=== PATIENT | male | born 1950 | race Caucasian/White ===

== ENCOUNTER 2018-11-30 11:02 | Emergency (ER) | payer MEDICARE ==
[~2018-11-30] VITALS: Ht 190.5 cm; Wt 145.1 kg
--- OUTSIDE RECORDS SUMMARY | 2018-11-30 11:05 | XMS REPORT ---
Author Author [facility] Address Unknown Phone Unavailable Care Team Providers Care Marine Animal Trainer Name Role Phone KATERINA AVERY Unavailable Unavailable JANUARY HOFFMAN Unavailable Unavailable Problems This patient has no known problems. Allergies, Adverse Reactions, Alerts This patient has no known allergies or adverse reactions. Medications This patient has no known medications. Results Test Description Test Time Test Comments Text Results Atomic Results Result Comments BASIC METABOLIC PANEL 2018-09-11 08:18:00 SODIUM (BEAKER) (test omhk=285) 139 meq/L 136-145 POTASSIUM (BEAKER) (test tgqt=326) 4.6 meq/L 3.5-5.1 Specimen slightly hemolyzed CHLORIDE (BEAKER) (test ofiq=635) 101 meq/L 98-107 CO2 (BEAKER) (test onkt=171) 27 meq/L 22-29 BLOOD UREA NITROGEN (BEAKER) (test kbog=814) 22 mg/dL 7-21 CREATININE (BEAKER) (test pgsb=276) 1.45 mg/dL 0.57-1.25 Specimen slightly hemolyzed GLUCOSE RANDOM (BEAKER) (test wkuw=974) 123 mg/dL 70-105 CALCIUM (BEAKER) (test nfle=477) 9.4 mg/dL 8.4-10.2 EGFR (BEAKER) (test nwfd=5147) 48 mL/min/1.73 sq m ESTIMATED GFR IS NOT ACCURATE CREATININE CLEARANCE IN PREDICTING GLOMERULAR FILTRATION RATE. ESTIMATED GFR IS NOT APPLICABLE FOR DIALYSIS PATIENTS. PROTHROMBIN TIME/[id number] 08:09:00* Test Item Value Reference Range Comments PROTIME (BEAKER) (test vuxb=970) 13.2 seconds 11.7-14.7 INR (BEAKER) (test yfgl=724) 1.0 <=5.9 RECOMMENDED COUMADIN/WARFARIN INR THERAPY RANGESSTANDARD DOSE: 2.0 - 3.0 Inclu carolin: PROPHYLAXIS for venous thrombosis, systemic embolization; TREATMENT for ann ous thrombosis and/or pulmonary embolus.HIGH RISK: Target INR is 2.5-3.5 for pat ients with mechanical heart valves.[id number] 07:58:00* Test Item Value Reference Range Comments HEMOGLOBIN (ROSALIO) (test kykj=198) 13.5 GM/DL 13.7-17.5 PLATELET [id number] 07:58:00* Test Item Value Reference Range Comments PLATELET COUNT (ROSALIO) (test ggst=891) 236 K/CU MM 150-450 [id number] 13:19:00Medical Cytology Report Case: [id number] Authorizing Provider: Kanika Freitas MD Collected: 06/26/2017 1240 Ordering Location: [facility] Diagnostic Imaging Received: 06/26/2017 1234 Pathologist: Sly Patel MD Specimen: Lymph Node, Inguinal, Left Cytology Addendum:This addendum is created to report [facility] FISH analysis for BCL2, BCL6, and MYC gene rearrangements:There is no change to the original diagnosis.Quantity of sample was not sufficient for testing. Please see attached scanned [facility] report for details.Aicha Patel MDAddendum electronically signed by Sly Patel MD on 07/16/2017 at 1:19 PMLEFT INGUINAL LYMPH NODE, FNA WITH CELL BLOCK AND CORE BIOPSY BY RADIOLOGIST (LIBRADO):-INVOLVED BY LARGE B CELL LYMPHOMA WITH A HIGH PROLIFERATION INDEX(80%)-SEE COMMENT Signing Pathologist Direct Phone Line: [phone] signed by Sly Patel MD on 07/04/2017 at 4:33 PMEvaluation of the biopsy, cell block and aspirate demonstrates involvement by a large B cell lymphoma with a high proliferation index as demonstrated by Ki-67 immunostaining. This neoplastic population demonstrates a non-germinal center phenotype by immunohistochemical staining evaluation. High grade lymphoma FISH panel pending and results will be reported as an addendum to the flow cytometry report. Please refer to related report(s) [id number], [id number], 26783 [id number] x 1; 59375 x9Hx non-Hodgkin's lymphomaLeft inguinal lymph node (6.0 cm)Collected: 06/26/2017 1240Received: 06/26/2017 [id number] passes; 2 smears; cell block; core biopsy [id number] 1-4: ATYPICAL LYMPHOID PROLIFERATION. NEED CORE. ADEQUATE FOR FLOW. (DG) 06/26/2017Sections of biopsy and clot demonstrate an atypical intermediate to large lymphocyte population with irregular nuclear contour, vesicular nuclei with fine chromatin, and one to several nucleoli. Occasional mitotic figures are seen. The following immunohistochemical stains are ordered on the biopsy:CD3: Highlights T lymphocytesCD5: Highlights T lymphocytes with similar staining pattern to OM0XB52: LctygurkEW81: Highlight abundant la rge B lymphocytes BCL-2: Positive in neoplastic cellsBCL-6: Positive in neoplast ic cellsKi-67: Increased staining(80%) of neoplastic cellsCMYC: PositiveMUM1: PositiveCYCLIND1: NegativeSatisfactoryThe following special studies were perfo rmed on this case and the interpretation is incorporated in the diagnostic repor t above:The immunohistochemistry test was developed and its performance characte ristics determined by [facility], Pathology Laboratory. It has not been cleared or approved by the U.S. Food and Drug Administration. The FDA has determined that such clearance or approval is not necessary. The test is use d for clinical purposes. It should not be regarded as investigational or for res earch. This laboratory is certified under the Clinical Laboratory Improvement Am endments of 1988 (CLIA-88) as qualified to perform high complexity clinical labo ratory testing.The following immunohistochemical stains are ordered:CD3, CD5, CD 10, CD20, BCL-2, BCL-6, Ki-67, MUM1, MYC, MpnsbuN3Pa. [facility], Department of Pathology, [address] [place] [address], Eq. [facility], Department of Pathology, [address] [place] [address], [facility], Department of Pathology, [address] [place] [address], Tel Xw. [facility] Department of Pathology, [address] [place] [address], FSTX CYTOMETRY REQUISITION 2017-07-06 14:15:00* Test Item Value Reference Range Comments FLOW CYTOMETRY RESULT POINTER (ROSALIO) (test gdrf=5638) See Separate Report FLOW CYTOMETRY AP CASE # (ROSALIO) (test cjiy=6390) [id number] FLOW [id number] 16:24:00Flow Cytometry Report Case: [id number] Authorizing Provider: Keaton Hoffman MD Collected: 06/26/2017 1414 Ordering Location: [facility] Diagnostic Imaging Received: 06/27/2017 0822 Pathologist: Sly Patel MD Specimen: Other LYMPH NODE, LEFT INGUINAL, FLOW CYTOMETRY:-ATYPICAL, KAPPA LIGHT CHAIN RESTRICTED B CELL POPULATION IDENTIFIED(5% OF TOTAL CELLULARITY)-NO ABERRANT T LYMPHOCYTE POPULATION-SEE COMMENT Flow cytometric analysis performed on the FNA of a left inguinal lymph node demonstrates the presence of a monoclonal B lymphocyte population. This population represents 5% of total cellularity. No aberrant T lymphocyte population or blasts were identified. Recommend correlation with cytology find ings([id number]).[id number] year old man with left inguinal lymphadenopathy and histo ry of Non-Hodgkins lymphoma who present for further evaluation by lymph node bio psy.Left Inguinal Lymph NodeCD2, CD3, CD4, CD5, CD7, CD8, CD10, CD11c, CD19, CD2 0, CD23, CD34, CD38, CD45, CD56, Hustler, LambdaSpecimen Viability: 96.87%Abnormal B lymphocyte population identified (5% of total cellularity)POSITIVE: CD45, CD 19, CD20, CD11c (subpopulation), KappaNEGATIVE: CD2, CD3, CD4,CD7, CD8, CD10,CD 23, CD34, CD38, CD56, LambdaIn addition, the following populations are identifi ed:Blasts: No CD45+ CD34+ blasts identified.Lymphocytes: Bright CD45+ lymphocyte s comprise 46.76% of total cells. T cells show a CD4:CD8 ratio of 6.6 and normal hernandes T cell antigen expression. B cells as noted above. CD5 demonstrates some indiscriminate staining on B cell subpopulation.Myeloid/monocytic populations: A s identified by CD45 and light scatter characteristics, granulocytes comprise 45 .99% of cells analyzed, and monocytes comprise 4.69% of total cells.The remainin g events analyzed represent nonviable cells, non-hematolymphoid cells, and debri sThese tests were developed and their performance characteristics determined by [facility] They have not been cleared or approved by the U.S. Food and Drug Adm inistration. The FDA has determined that such clearance or approval is not neces evelin. It should not be regarded as investigational or for research. This laborat ory is certified under the Clinical Laboratory Improvement Amendments of 1988 (" CLIA") as qualified to perform high-complexity clinical testing.U/S, CORE BIOPSY 2017-06-26 18:15:00Reason for Exam:->vt lymphomaFINAL REPORT Exam: Ultrasound-guided left inguinal lymph node biopsy Clinical History: Non-Hodgkin's lymphoma Consent: Benefits and risks were explained to the patient who gave consent to the procedure. Procedure: The left groin was prepped and draped in usual sterile fashion. 1% lidocaine was used as local anesthetic. Under ultrasound guidance, 25-gauge needle was used to perform FNA of a 6.7 x 6.4 x 3.8 cm lymph node in the left inguinal region. 4 passes were made. Upon request by the pathologist, core biopsy was performed using 18-gauge needle. 2 passes were made. The specimens were placed in formalin and sent to pathology. Hemostasis was achieved. The patient tolerated the procedure well without any adverse reactions. He left the department in stable condition. Complication: None immediate Impression: 1. Ultrasound-guided left inguinal lymph node FNA and core biopsy as described. Signed: Kanika Freitas MDReport Verified Date/Time: 06/26/2017 18:15:53 Reading Location: [facility] Radiology [facility]
--- OUTSIDE RECORDS SUMMARY | 2018-11-30 11:05 | XMS REPORT | Clinical Summary ---
Author Author RUSSELL [facility] NampaUrban MappingMary Bridge [facility] Organization [facility] Address Unknown Phone Unavailable Care Team Providers Care Mission Worker Name Role Phone Burt Espinoza MD PCP Allergies No Known Allergies Medications End Date Status Medication Sig Dispensed Refills Start Date Active venlafaxine (EFFEXOR) Take 37.5 mg 0 37.5 MG tablet by mouth daily. Active losartan-hydroCHLOROthiaz Take 1 tablet 0 kayla (HYZAAR) 100-25 mg by mouth per tablet daily. Active HYDROcodone-acetaminophen Take 1 tablet 0 (NORCO 10-325) 10-325 mg by mouth per tablet every 6 (six) hours as needed for Pain. Active gabapentin (NEURONTIN) Take 100 mg 0 100 MG capsule by mouth 3 (three) times daily. Active ALPRAZolam (XANAX) 0.5 MG Take 0.5 mg 0 tablet by mouth every night as needed for Anxiety. Active allopurinol (ZYLOPRIM) Take 100 mg 0 100 MG tablet by mouth daily. Active magnesium 250 mg Tab Take 250 mg 0 tablet by mouth 2 (two) times daily. 09/11/2018 Discontinued apixaban (ELIQUIS) 5 mg Take 5 mg by 0 Tab tablet mouth 2 (two) times daily. 09/10/2018 Discontinued traMADol (ULTRAM) 50 mg Take 50 mg by 0 tablet mouth every 6 (six) hours as needed for Pain. 09/10/2018 Discontinued azilsartan Take by 0 med-chlorthalidone mouth. (EDARBYCLOR) 40-25 mg Tab 09/21/2018 traMADol (ULTRAM) 50 mg Take 1 tablet 28 tablet 0 tablet (50 mg total) 8 by mouth every 6 (six) hours as needed for Pain for up to 10 days. Max Daily Amount: 200 mg 09/14/2018 polyethylene glycol Take 17 g by 30 each 0 (GLYCOLAX) 17 gram packet mouth daily 8 as needed for up to 3 days. Active Problems Problem Noted Date Hernia, inguinal 09/11/2018 Encounters Care Team Description Date Type Specialty Kwaku Benitez MD 09/11/2018 Anesthesia Event Amol Cross MD ROBOTIC LAPAROSCOPY,HERNIORRHAPHY INGUINAL BILATERAL 09/11/2018 Surgery Amol Cross MD Inguinal hernia with gangrene, recurrence not specified, unspecified laterality 09/11/2018 Hospital Encounter Resource, [facility] Phone 09/10/2018 Hospital Pre-Admission Testing Encounter after 11/29/2017 Social History Date Tobacco Use Types Packs/Day Years Used Never Smoker Smokeless Tobacco: Never Used Alcohol Use Drinks/Week oz/Week Comments Yes Sex Assigned at Date Recorded Not on file Industry Job Start Date Occupation Not on file Not on file Not on file Travel End Travel History Travel Start No recent travel history available. Last Filed Vital Signs Time Taken Vital Sign Reading 09/11/2018 3:45 PM ENGINEERING MANAGER Blood Pressure 118/65 09/11/2018 3:45 PM ENGINEERING MANAGER Pulse 70 09/11/2018 3:45 PM ENGINEERING MANAGER Temperature 36.6 C (97.8 F) 09/11/2018 3:45 PM ENGINEERING MANAGER Respiratory Rate 18 09/11/2018 2:52 PM ENGINEERING MANAGER Oxygen Saturation 97% - Inhaled Oxygen - Concentration 09/11/2018 6:59 AM ENGINEERING MANAGER Weight 144.8 kg (319 lb 3.2 oz) 09/11/2018 6:59 AM ENGINEERING MANAGER Height 190.5 cm (6' 3") 09/11/2018 6:59 AM ENGINEERING MANAGER Body Mass Index 39.9 Plan of Treatment Not on file Implants Device Identifier Shelf Expiration Date Model / Serial / Lot Implanted Type Area Manufactur er 01/28/2021 [id number] / [id number] / Mesh Renny Progrip Laps [id number] Mesh Inguinal COVIDIEN:U [id number] - [id number] S Implanted: Qty: 2 on 09/11/2018 by SURG:Amol Peoples MD UTURE Procedures Comments Procedure Name Priority Date/Time Associated Diagnosis TRANSFUSION SERVICE 09/12/2018 REPORT - SCAN 6:04 PM ENGINEERING MANAGER PROCEDURE W/ DAVINCI XI 09/11/2018 Bilateral inguinal hernia 8:00 AM ENGINEERING MANAGER without obstruction or gangrene, recurrence not specified Case Notes 4 HRS PER [facility] Special Needs (DAVINCI - XI NOT REQUESTED, MESH) ROBOTIC 09/11/2018 Bilateral inguinal hernia LAPAROSCOPY,HERNIORRHAPHY 8:00 AM ENGINEERING MANAGER without obstruction or INGUINAL BILATERAL gangrene, recurrence not specified Case Notes 4 HRS PER CHAPPEL Special Needs (DAVINCI - XI NOT REQUESTED, MESH) TYPE AND SCREEN, STAT 09/11/2018 AUTOMATED 7:02 AM ENGINEERING MANAGER BASIC METABOLIC PANEL (7) Routine 09/11/2018 7:02 AM ENGINEERING MANAGER PROTHROMBIN TIME/INR Routine 09/11/2018 7:02 AM ENGINEERING MANAGER PLATELET COUNT Routine 09/11/2018 7:02 AM ENGINEERING MANAGER HEMOGLOBIN Routine 09/11/2018 7:02 AM ENGINEERING MANAGER after 11/29/2017 Results * TRANSFUSION SERVICE REPORT - SCAN (09/12/2018 6:04 PM ENGINEERING MANAGER) Narrative Performed At * Type and screen, automated (09/11/2018 7:02 AM ENGINEERING MANAGER) ABO/RH AUTOMATED (BEAKER) O POSITIVE [facility] Ab Scrn NEGATIVE [facility] Specimen Blood Performing Organization Address City/State/Zipcode Phone Number [facility] [address] [place] [address] MEDICAL CENTER * Prothrombin time/INR (09/11/2018 7:02 AM ENGINEERING MANAGER) Protime 13.2 11.7 - 14.7 seconds [facility] INR 1.0 <=5.9 [facility] Specimen Blood Narrative Performed At RECOMMENDED COUMADIN/WARFARIN INR THERAPY RANGES [facility] STANDARD DOSE: 2.0 - 3.0 Includes: PROPHYLAXIS for venous thrombosis, [facility] systemic embolization; TREATMENT for venous thrombosis and/or pulmonary embolus. HIGH RISK: Target INR is 2.5-3.5 for patients with mechanical heart valves. Performing Organization Address City/State/Zipcode Phone Number [place] [phone] * Platelet count (09/11/2018 7:02 AM ENGINEERING MANAGER) Platelets 236 150 - 450 K/CU MM [facility] Specimen Blood Performing Organization Address City/[facility] Phone Number [place] [phone] [place] [address] * Hemoglobin (09/11/2018 7:02 AM ENGINEERING MANAGER) Hemoglobin 13.5 (L) 13.7 - 17.5 GM/DL [facility] Specimen Blood Performing Organization Address City/[facility] Hospitalcode Phone Number [address] * Basic Metabolic Panel (09/11/2018 7:02 AM ENGINEERING MANAGER) Sodium 139 136 - 145 meq/L [facility] Potassium 4.6Comment: Specimen slightly 3.5 - 5.1 meq/L [facility] Chloride 101 98 - 107 meq/L [facility] CO2 27 22 - 29 meq/L [facility] BUN 22 (H) 7 - 21 mg/dL [facility] Creatinine 1.45 (H)Comment: Specimen 0.57 - 1.25 mg/dL [facility] slightly hemolyzed [facility] Glucose 123 (H) 70 - 105 mg/dL [facility] Calcium 9.4 8.4 - 10.2 mg/dL [facility] EGFR 48Comment: ESTIMATED GFR IS mL/min/1.73 sq m [facility] NOT ACCURATE CREATININE [facility] CLEARANCE IN PREDICTING GLOMERULAR FILTRATION RATE. ESTIMATED GFR IS NOT APPLICABLE FOR DIALYSIS PATIENTS. Specimen Blood Performing Organization Address City/State/Zipcode Phone Number [facility] [address] [place] [address] [facility] after 11/29/2017 Insurance Payer Benefit Subscriber ID Type Phone Address Plan / Group [facility] - AARP/MEDIC xxxxxxxxx MEDICARE MGD CARE ARE COMPLETE Advance Directives For more information, please contact: [facility] [address] [place] [address] Date Inactivated Comments Code Status Date Activated Full Code 09/11/2018 6:43 AM This code status was determined by: Patient
--- NOTE | 2018-11-30 11:08 | NUR ---
Sinan CRONIN at bedside.
--- NOTE | 2018-11-30 11:49 | Diagnostic Imaging Report ---
KNEE RIGHT THREE VIEWS - 3 views HISTORY: Pain. Right knee pain COMPARISON: None available. FINDINGS: Bones: No acute displaced fracture. Osseous alignment is within normal limits. Joints: Severe tricompartmental degenerative changes with complete loss of joint space. Soft tissues: The soft tissues appear unremarkable. IMPRESSION: Severe tricompartmental degenerative changes. Signed by: Dr. Shawn Leung M.D. on 11/30/2018 11:46 AM
[2018-11-30] MEDS ORDERED: KETOROLAC TROMETHAMINE 60 MG/2 ML VIAL IM ONE (12:00)
[2018-11-30] MEDS ORDERED: KETOROLAC TROMETHAMINE 30 MG/ML VIAL IV ONE (12:00)
[2018-11-30] MEDS ORDERED: HYDROCODONE/APAP 10MG-325MG TAB PO ONE (12:00)
[2018-11-30 12:17] VITALS: BP 112/74
== END 2018-11-30 12:28 | disposition home or self-care (01) ==
LOC: ER 11:02
DX: M25.561 Pain in right knee (principal); S83.421A Sprain of lateral collateral ligament of right knee, initial encounter; X50.1XXA Overexertion from prolonged static or awkward postures, initial encounter; Y92.488 Other paved roadways as the place of occurrence of the external cause; I10 Essential (primary) hypertension; E03.9 Hypothyroidism, unspecified; Z85.72 Personal history of non-Hodgkin lymphomas
CPT/HCPCS: 29530; 73562; 99284; J1885

== ENCOUNTER 2019-06-23 14:15 | Emergency (ER) | payer MEDICARE ==
[~2019-06-23] VITALS: Ht 190.5 cm; Wt 145.1 kg
--- OUTSIDE RECORDS SUMMARY | 2019-06-23 14:18 | XMS REPORT | Clinical Summary ---
Author Author [facility]LL [facility] Organization [facility] Address Unknown Phone Unavailable Care Team Providers Care Police Surgeon Name Role Phone Burt Espinoza MD PCP [...] not specified, unspecified laterality 09/11/2018 Hospital Encounter 09/10/2018 Hospital Pre-Admission Testing Encounter after 06/22/2018 Social History Date Tobacco Use Types Packs/Day [...] Taken Vital Sign Reading 09/11/2018 3:45 PM TIN CONTAINER STRAIGHTENER Blood Pressure 118/65 09/11/2018 3:45 PM TIN CONTAINER STRAIGHTENER Pulse 70 09/11/2018 3:45 PM TIN CONTAINER STRAIGHTENER Temperature 36.6 C (97.8 F) 09/11/2018 3:45 PM TIN CONTAINER STRAIGHTENER Respiratory Rate 18 09/11/2018 2:52 PM TIN CONTAINER STRAIGHTENER Oxygen Saturation 97% - Inhaled Oxygen - Concentration 09/11/2018 6:59 AM TIN CONTAINER STRAIGHTENER Weight 144.8 kg (319 lb 3.2 oz) 09/11/2018 6:59 AM TIN CONTAINER STRAIGHTENER Height 190.5 cm (6' 3") 09/11/2018 6:59 AM TIN CONTAINER STRAIGHTENER Body Mass Index 39.9 Plan of Treatment Not on file Implants Device Identifier Shelf Expiration Date Model / Serial / Lot Implanted Type Area Manufactur er 01/28/2021 [id number] / [id number] / Mesh Renny Progrip Laps [id number] Mesh Inguinal COVIDIEN:U [id number] - [id number] S Implanted: Qty: 2 on 09/11/2018 by SURG:AUTOS Amol Cross MD UTURE Procedures Comments Procedure Name Priority Date/Time Associated Diagnosis TRANSFUSION SERVICE 09/12/2018 REPORT - SCAN 6:04 PM TIN CONTAINER STRAIGHTENER PROCEDURE W/ DAVINCI XI 09/11/2018 Bilateral inguinal hernia 8:00 AM TIN CONTAINER STRAIGHTENER without obstruction or gangrene, recurrence not specified Case Notes 4 HRS PER CHAPPEL Special Needs (DAVINCI - XI NOT REQUESTED, MESH) ROBOTIC 09/11/2018 Bilateral inguinal hernia LAPAROSCOPY,HERNIORRHAPHY 8:00 AM TIN CONTAINER STRAIGHTENER without obstruction or INGUINAL BILATERAL gangrene, recurrence not specified Case Notes 4 HRS PER CHAPPEL Special Needs (DAVINCI - XI NOT REQUESTED, MESH) TYPE AND SCREEN, STAT 09/11/2018 AUTOMATED 7:02 AM TIN CONTAINER STRAIGHTENER BASIC METABOLIC PANEL (7) Routine 09/11/2018 7:02 AM TIN CONTAINER STRAIGHTENER PROTHROMBIN TIME/INR Routine 09/11/2018 7:02 AM TIN CONTAINER STRAIGHTENER PLATELET COUNT Routine 09/11/2018 7:02 AM TIN CONTAINER STRAIGHTENER HEMOGLOBIN Routine 09/11/2018 7:02 AM TIN CONTAINER STRAIGHTENER after 06/22/2018 Results * TRANSFUSION SERVICE REPORT - SCAN (09/12/2018 6:04 PM TIN CONTAINER STRAIGHTENER) Narrative Performed At * Type and screen, automated (09/11/2018 7:02 AM TIN CONTAINER STRAIGHTENER) ABO/RH AUTOMATED (BEAKER) O POSITIVE [facility] Ab Scrn NEGATIVE [facility] Specimen Blood Performing Organization Address City/State/Zipcode Phone Number [facility] [address] [place] [address] MEDICAL CENTER * Prothrombin time/INR (09/11/2018 7:02 AM TIN CONTAINER STRAIGHTENER) Protime 13.2 11.7 - 14.7 seconds [facility] INR 1.0 <=5.9 [facility] Specimen Blood Narrative Performed At RECOMMENDED COUMADIN/WARFARIN INR THERAPY RANGES [facility] STANDARD DOSE: 2.0 - 3.0 Includes: PROPHYLAXIS for venous thrombosis, [facility] systemic embolization; TREATMENT for venous thrombosis and/or pulmonary embolus. HIGH RISK: Target INR is 2.5-3.5 for patients with mechanical heart valves. Performing Organization Address City/State/Zipcode Phone Number [address] [address] [facility] * Platelet count (09/11/2018 7:02 AM TIN CONTAINER STRAIGHTENER) Platelets 236 150 - 450 K/CU MM [facility] Specimen Blood Performing Organization Address City/[facility] Centercode Phone Number [address] [address] [facility] * Hemoglobin (09/11/2018 7:02 AM TIN CONTAINER STRAIGHTENER) Hemoglobin 13.5 (L) 13.7 - 17.5 GM/DL [facility] Specimen Blood Performing Organization Address [facility] Centercoky Phone Number [address] [address] [facility] * Basic Metabolic Panel (09/11/2018 7:02 AM TIN CONTAINER STRAIGHTENER) Sodium 139 136 - 145 meq/L [facility] Potassium 4.6Comment: Specimen slightly 3.5 - 5.1 meq/L [facility] Chloride 101 98 - 107 meq/L [facility] CO2 27 22 - 29 meq/L [facility] BUN 22 (H) 7 - 21 mg/dL [facility] Creatinine 1.45 (H)Comment: Specimen 0.57 - 1.25 mg/dL [facility] slightly hemolyzed [facility] Glucose 123 (H) 70 - 105 mg/dL [facility] Calcium 9.4 8.4 - 10.2 mg/dL [facility] EGFR 48Comment: ESTIMATED GFR IS mL/min/1.73 sq m [facility] NOT ACCURATE CREATININE [facility] CLEARANCE IN PREDICTING GLOMERULAR FILTRATION RATE. ESTIMATED GFR IS NOT APPLICABLE FOR DIALYSIS PATIENTS. Specimen Blood Performing Organization Address City/State/Zipcode Phone Number [facility] [address] [place] [address] MEDICAL CENTER after 06/22/2018 Insurance Payer Benefit Subscriber ID Type Phone Address Plan / Group [facility] - AARP/MEDIC xxxxxxxxx MEDICARE MGD CARE ARE COMPLETE Advance Directives For more information, please contact: [address] [address] Date Inactivated Comments Code Status Date Activated Full Code 09/11/2018 6:43 AM This code status was determined by: Patient
--- NOTE | 2019-06-23 16:16 | Diagnostic Imaging Report ---
EXAM: Focused Soft Tissue Ultrasound Evaluation of left leg INDICATION: ^left leg mass COMPARISON: None TECHNIQUE: Mondragon scale, color Doppler images of the left leg soft tissues were obtained. FINDINGS: Focused sonographic evaluation of the soft tissues of the left leg in the area of clinical interest (palpable mass) demonstrates a 6.6 x 3.5 x 4.9cm predominantly anechoic thin-walled fluid collection with multiple internal septations no associated vascularity. IMPRESSION: 6.6 x 3.5 x 4.9 cm predominantly anechoic thin-walled fluid collection with internal septations most likely represents a seroma. Hematoma or abscess are thought to be less likely. Signed by: Irving Fletcher MD on 06/23/2019 4:13 PM
[2019-06-23 16:46] VITALS: BP 108/86
== END 2019-06-23 16:50 | disposition home or self-care (01) ==
LOC: ER 14:15
DX: M79.652 Pain in left thigh (principal); I10 Essential (primary) hypertension; C81.90 Hodgkin lymphoma, unspecified, unspecified site; Z82.49 Family history of ischemic heart disease and other diseases of the circulatory system
CPT/HCPCS: 76882; 93971; 99283